=== PATIENT | female | born 1955 | race Caucasian/White ===

== ENCOUNTER 2017-06-13 21:44 | Inpatient (IN) ==
--- NOTE | 2017-06-13 22:23 | Diag Imaging Result Doc PS360 ---
EXAM: HEAD W/O CONTRAST - 06/13/2017 HISTORY: stroke like symptoms TECHNIQUE: Dose reduction protocol COMPARISON: 05/18/2014 FINDINGS: There is an old infarct at the left caudate region which appears stable. There is a small infarct at the left centrum semiovale the previous exam. There is a new infarct at the left superior frontoparietal junction compared to previous exam, which measures approximately 2 cm. This is otherwise a nonspecific age. There is a new infarct at the posterior superior insular cortex compared to previous exam. This measures approximately 2 cm and is otherwise nonspecific age. There is no other acute-appearing infarct is identified, although acute infarcts may not be immediately visible. There is no evidence of hemorrhage, mass effect, midline shift, or hydrocephalus. IMPRESSION: Old infarct at left caudate nucleus region. New small infarcts at left superior frontoparietal junction and at right posterior superior temporal lobe, compared to 05/18/2014 exam. These are otherwise of nonspecific age. Correlation with MRI could be considered. No hemorrhage or mass effect. Electronically signed by Deion Parry 06/13/2017 10:21 PM
--- NOTE | 2017-06-13 22:25 | Diag Imaging Result Doc PS360 ---
EXAM: CHEST-PORTABLE - 06/13/2017 HISTORY: stroke like symptoms TECHNIQUE: Portable chest 2200 COMPARISON: 10/23/2015 FINDINGS: Heart size appears upper normal. There is left midlung calcified granuloma and there are calcified left hilar lymph nodes from old granulosis disease which are stable. The projection is lordotic which mildly limits detail at the lung bases. The lungs appear grossly clear of acute changes. There is no substantial pleural effusion or pneumothorax identified. IMPRESSION: No evidence of acute disease. Electronically signed by Deion Parry 06/13/2017 10:23 PM
[2017-06-13 22:37] LABS: BASO% 0.2 % (0.0-0.8); EOS# 0.07 X1000 (0.0-0.7); EOS% 1.2 % (0.0-10.0); HEMATOCRIT 44.1 % (37.0-47.0); HEMOGLOBIN 14.6 g/dL (12.0-16.0); IMM GRAN# 0.02 X1000 (0.0-0.04); IMM GRAN% 0.3 % (0.0-0.5); LYMPH# 1.52 X1000 (1.2-3.4); LYMPH% 25.2 % (20.5-51.1); MANUAL DIFF NEEDED? NO; MCH 36.6 PG (27-31); MCHC 33.1 g/dL (33-37); MCV 110.5 FL (81-99); MONO# 0.57 X1000 (0.11-0.59); MONO% 9.5 % (1.7-9.3); MPV 9.2 FL (7.4-10.4); NEUT% 63.6 % (42.2-75.2); PLT 133 X1000 (130-400); RBC 3.99 XMIL (4.2-5.4)
[2017-06-13 22:45] LABS: INR 0.98; PROTIME 10.3 Seconds (9.2-11.7); PTT 27.3 Seconds (22.0-36.0)
[2017-06-13 22:45] LABS: URINE CULTURE NEEDED? NO; URINE MICRO REVIEW NEEDED? NO; URINE SOURCE CATH
[2017-06-13 22:53] LABS: BILIRUBIN URINE NEGATIVE (NEGATIVE); BLOOD URINE TRACE (NEGATIVE); COLOR YELLOW; GLUCOSE URINE NEGATIVE (NEGATIVE); LEUKOCYTES URINE NEGATIVE (NEGATIVE); NITRITE URINE NEGATIVE (NEGATIVE); PROTEIN URINE 30 mg/dL (NEGATIVE); SP GRAVITY URINE 1.028; TURBIDITY URINE CLEAR (CLEAR); UROBILINOGEN URINE NORMAL (NORMAL)
[2017-06-13 22:54] LABS: UR EPITHELIAL CELLS <10 /HPF (<10); URINE BACTERIA NEGATIVE /HPF; URINE RBC <10 /HPF (<10); URINE WBC <10 /HPF (<10)
[2017-06-13 23:02] LABS: ALBUMIN 4.3 g/dL (3.5-5.0); POTASSIUM 3.9 mmol/L (3.5-5.1); TOTAL BILIRUBIN 0.56 mg/dL (0.20-1.00); TOTAL PROTEIN 7.2 g/dL (6.3-8.3)
[2017-06-13 23:04] LABS: UR AMPHETAMINES QUAL NONE DETECTED (NONE DETECT); UR BARBITUATES QUAL NONE DETECTED (NONE DETECT); UR BENZODIAZEPIN QUAL PRESUMPTIVE POSITIVE (NONE DETECT); UR CANNABINOIDS QUAL NONE DETECTED (NONE DETECT); UR COCAINE QUAL NONE DETECTED (NONE DETECT); UR METHADONE QUAL NONE DETECTED (NONE DETECT); UR OPIATES QUAL NONE DETECTED (NONE DETECT); UR OXYCODONE QUAL PRESUMPTIVE POSITIVE (NONE DETECT); UR PCP QUAL NONE DETECTED (NONE DETECT)
[2017-06-13] MEDS ORDERED: MORPHINE IV ONE (23:10)
[2017-06-13] MEDS ORDERED: ZOFRAN IV ONE (23:10)
[2017-06-13] MEDS ORDERED: VENTOLIN HFA INH PRN (23:36)
--- NOTE | 2017-06-13 23:47 | PROVIDER DOCUMENTATION ---
This chart was entered by Sujit Jimenez Scribe, acting as scribe for Homar Gant MD. HPI-Neurological Disorder - General Stated Complaint: STROKE LIKE SYMPTOMS Time Seen by Provider: 06/13/17 21:46 Source: patient, EMS Allergies/Adverse Reactions: Patient Allergies Allergy/AdvReac Type Severity Reaction Status Date / Time promethazine HCl * AdvReac Mild NERVOUS Verified 06/13/17 23:06 [From Phenergan] Home Medications: Home Medication List Medication Instructions Recorded Confirmed Last Taken Type Gabapentin 600 mg PO TID 08/14/12 06/13/17 06/13/17 13:00 History Alprazolam [Xanax] 0.5 mg PO TID 09/07/14 06/13/17 06/13/17 13:00 History Albuterol Sulfate [Proair Hfa] 8.5 gm IH Q4-6H PRN PRN 11/12/14 06/13/17 13:00 History Ipratropium/Albuterol Sulfate 3 ml IH PRN PRN 06/04/15 06/13/17 06/13/17 13:00 History [Iprat-Albut 0.5-3(2.5) mg/3 ml] Albuterol Sulfate [Proair Hfa] 8.5 gm IH TID 06/13/17 06/13/17 06/13/17 13:00 History Cyclobenzaprine HCl [Flexeril] 5 mg PO TID 06/13/17 06/13/17 06/13/17 13:00 History Diphenhydramine [Benadryl] 100 mg PO Q4H PRN PRN 06/13/17 06/13/17 06/13/17 13: 00 History Oxycodone HCl/Acetaminophen 1 each PO TID 06/13/17 06/13/17 06/13/17 13:00 History [Percocet 7.5-325 mg Tablet] - History of Present Illness-Neuro Nature of Presenting Problem: Pt is a 61 yowf who presents to ER via EMS with CC of stroke like sxs. Pt reports that she noticed herself having slurred speech today, starting at 1100. EMS reports that pt has had 5 falls in the past 2 days and pt has hx of CVA. Pt reports that her last CVA left her with right side weakness, but reports that her sxs did eventually resolve. Pt also reports that she feels as though she is falling, she is nauseas, and has a headache. Pt reports that she cannot feel her left hand and is having left sided weakness. Severity: reports: moderate Onset/Duration: reports: this morning (1100) Timing: reports: still present Context: reports: impaired speech, facial droop, falling New weakness or altered sensation location:: reports: RUE, RLE Cognitive Baseline: alert, oriented x3 Gait Baseline: walks without assistance Associated Symptoms: reports: decreased ability to walk or stand, dizziness, nausea, numbness in legs/feet, slurred speech, trouble walking. denies: short of breath, headache, chest pain, neck/back pain, fatigue, vomiting, vision changes, weakness Similar Symptoms Previously?: Yes Recently seen or treated by another doctor?: No Review of Systems - Adult - REVIEW OF SYSTEMS - ADULT Constitutional: denies: chills, fever, fatique, night sweats, weight gain, weight loss Eyes: reports: no symptoms reported Ears, Nose, Mouth & Throat: reports: no symptoms reported Cardiovascular: reports: no symptoms reported Respiratory: reports: no symptoms reported Gastrointestinal: reports: nausea. denies: abdominal pain, hematemesis, constipation, diarrhea, difficulty swallowing, frequent heartburn, poor appetite , rectal bleeding, vomiting Genitourinary: reports: no symptoms reported Musculoskeletal: reports: muscle weakness. denies: bone pain, back pain, frequent leg cramps, joint pain, joint swelling, muscle aches, neck pain Integumentary: reports: no symptoms reported Neurological: reports: dizziness/vertigo, headache/migraines, numbness, slurred speech. denies: ataxia, loss of balance, paresthesia, seizure, syncope, tremors Psychiatric: reports: no symptoms reported Endocrine: reports: no symptoms reported Hematologic/Lymphatic: reports: no symptoms reported Allergic/Immunologic: reports: no symptoms reported All Other Systems: Reviewed and Negative Past History - Adult - PAST MEDICAL HISTORY-ADULT Review of Records: reports: Nursing Assessment Review, Medications Reviewed Cardiovascular: reports: HTN Respiratory: reports: asthma, COPD, other (emphysema) Gastrointestinal: reports: GERD Genitourinary: reports: kidney disease (stage 4), kidney stones Musculoskeletal: reports: chronic pain (leg pain) Neurological: reports: CVA Other Conditions: reports: other (nu) - PRIOR SURGERIES/PROCEDURES Surgical/Procedure History: reports: recent surgery (total knee), appendectomy, hysterectomy, , other (lithotripsy x2) - IMMUNIZATION STATUS Childhood Immunizations: See Nurse Assessment Flu Vaccine: See Nurse Assessment - SOCIAL HISTORY Smoking: cigarettes, less than 1 pack/day Physical Exam- Neurological - Physical Exam-Neuro Initial Vital Signs Reviewed: Yes General Appearance: appears well, alert, mild distress, obese Eye Exam: bilateral eye: PERRL, EOMI HENMT: other (facial asymmetry) Head Injury: no evidence of injury Neck: non-tender, full range of motion, supple Respiratory: chest non-tender, lungs clear, no pleuratic chest pain, no respiratory distress, no accessory muscle use, wheezing. negative: normal breath sounds, respiratory distress, decreased breath sounds, accessory muscle use Cardiovascular: normal peripheral pulses, regular rate, rhythm. negative: bradycardia, tachycardia, irregularly irregular Extremity: non-tender, normal inspection, no pedal edema, no calf tenderness, normal capillary refill, pelvis stable. 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 negative: normal speech Motor/Sensory: sensory deficit, weak motor strength RUE, weak motor strength RLE . negative: no motor deficit, no sensory deficit Psych/Mental Status: normal mood/affect, normal thought content, normal thought process, oriented x 3 Progress - PLAN OF CARE/RESULTS Progress/Plan/Lab Results: Vital Signs - 8 hr 06/13/17 22:16 Temperature 98.8 F Pulse Rate 89 Respiratory Rate 16 Blood Pressure 123/81 O2 Sat by Pulse Oximetry 95 Laboratory Results - last 24 hr 06/13/17 06/13/17 06/13/17 22:20 22:20 22:20 WBC 6.03 RBC 3.99 L Hgb 14.6 Hct 44.1 MCV 110.5 H MCH 36.6 H MCHC 33.1 RDW Std Deviation 12.9 Plt Count 133 MPV 9.2 Immature Gran % (Auto) 0.3 Neut % (Auto) 63.6 Lymph % (Auto) 25.2 [place] % (Auto) 9.5 H Eos % (Auto) 1.2 Baso % (Auto) 0.2 Immature Gran # (Auto) 0.02 Neut # (Auto) 3.84 Lymph # (Auto) 1.52 [place] # (Auto) 0.57 Eos # (Auto) 0.07 Baso # (Auto) 0.01 PT 10.3 INR 0.98 PTT (Actin FS) 27.3 Sodium 137 Potassium 3.9 Chloride 99 Carbon Dioxide 24 L Anion Gap 14 BUN 17 Creatinine 1.0 H Estimated GFR/1.73 m2 57 BUN/Creatinine Ratio 17 Glucose 103 Calculated Osmolality 276 Calcium 9.0 Total Bilirubin 0.56 AST 23 ALT 31 Alkaline Phosphatase 75 Troponin T Total Protein 7.2 Albumin 4.3 Globulin 2.9 Albumin/Globulin Ratio 1.5 Plasma Lactate Urine Source Urine Color Urine Turbidity Urine pH Ur Specific [place] Urine Protein Ur Glucose (Stick) Ur Ketones (Stick) Urine Blood Urine Nitrite Urine Bilirubin Urobilinogen Dipstick Urine Leukocytes Urine WBC (Auto) Urine RBC (Auto) U Epithel Cells (Auto) Urine Bacteria (Auto) Urine Opiates Screen Ur Oxycodone Screen Ur Methadone, Qual Ur Barbiturates Screen Ur Phencyclidine Scrn Ur Amphetamines Screen U Benzodiazepines Scrn Urine Cocaine Screen U Cannabinoids Screen 06/13/17 06/13/17 06/13/17 22:20 22:20 22:35 WBC RBC Hgb Hct MCV MCH MCHC RDW Std Deviation Plt Count MPV Immature Gran % (Auto) Neut % (Auto) Lymph % (Auto) [place] % (Auto) Eos % (Auto) Baso % (Auto) Immature Gran # (Auto) Neut # (Auto) Lymph # (Auto) [place] # (Auto) Eos # (Auto) Baso # (Auto) PT INR PTT (Actin FS) Sodium Potassium Chloride Carbon Dioxide Anion Gap BUN Creatinine Estimated GFR/1.73 m2 BUN/Creatinine Ratio Glucose Calculated Osmolality Calcium Total Bilirubin AST ALT Alkaline Phosphatase Troponin T < 0.010 Total Protein Albumin Globulin Albumin/Globulin Ratio Plasma Lactate 1.3 Urine Source CATH Urine Color YELLOW Urine Turbidity CLEAR Urine pH 6.0 Ur Specific [place] 1.028 Urine Protein 30 A Ur Glucose (Stick) NEGATIVE Ur Ketones (Stick) NEGATIVE Urine Blood TRACE A Urine Nitrite NEGATIVE Urine Bilirubin NEGATIVE Urobilinogen Dipstick NORMAL Urine Leukocytes NEGATIVE Urine WBC (Auto) <10 Urine RBC (Auto) <10 U Epithel Cells (Auto) <10 Urine Bacteria (Auto) NEGATIVE Urine Opiates Screen Ur Oxycodone Screen Ur Methadone, Qual Ur Barbiturates Screen Ur Phencyclidine Scrn Ur Amphetamines Screen U Benzodiazepines Scrn Urine Cocaine Screen U Cannabinoids Screen 06/13/17 22:35 WBC RBC Hgb Hct MCV MCH MCHC RDW Std Deviation Plt Count MPV Immature Gran % (Auto) Neut % (Auto) Lymph % (Auto) [place] % (Auto) Eos % (Auto) Baso % (Auto) Immature Gran # (Auto) Neut # (Auto) Lymph # (Auto) [place] # (Auto) Eos # (Auto) Baso # (Auto) PT INR PTT (Actin FS) Sodium Potassium Chloride Carbon Dioxide Anion Gap BUN Creatinine Estimated GFR/1.73 m2 BUN/Creatinine Ratio Glucose Calculated Osmolality Calcium Total Bilirubin AST ALT Alkaline Phosphatase Troponin T Total Protein Albumin Globulin Albumin/Globulin Ratio Plasma Lactate Urine Source Urine Color Urine Turbidity Urine pH Ur Specific [place] Urine Protein Ur Glucose (Stick) Ur Ketones (Stick) Urine Blood Urine Nitrite Urine Bilirubin Urobilinogen Dipstick Urine Leukocytes Urine WBC (Auto) Urine RBC (Auto) U Epithel Cells (Auto) Urine Bacteria (Auto) Urine Opiates Screen NONE DETECTED Ur Oxycodone Screen PRESUMPTIVE POSITIVE A Ur Methadone, Qual NONE DETECTED Ur Barbiturates Screen NONE DETECTED Ur Phencyclidine Scrn NONE DETECTED Ur Amphetamines Screen NONE DETECTED U Benzodiazepines Scrn PRESUMPTIVE POSITIVE A Urine Cocaine Screen NONE DETECTED U Cannabinoids Screen NONE DETECTED Orders Category Date Time Status Cardiac Monitoring DIRECTED Care 06/13/17 22:17 Active Finger Stick Blood Sugar (ED) DIRECTED Care 06/13/17 22:17 Active Saline Loc NOW Care 06/13/17 22:17 Active CHEST-PORTABLE [RAD] Stat Exams 06/13/17 21:45 Completed HEAD W/O CONTRAST [CT] Stat Exams 06/13/17 21:45 Completed CBC WITH ELECTRONIC DIFF [HEME] Stat Lab 06/13/17 22:20 Completed COMPREHENSIVE METABOLIC PANEL [CHEM] Stat Lab 06/13/17 22:20 Completed LACTATE, PLASMA [CHEM] Stat Lab 06/13/17 22:20 Completed PROTIME WITH INR [COAG] Stat Lab 06/13/17 22:20 Completed PTT [COAG] Stat Lab 06/13/17 22:20 Completed TROPONIN T Stat Lab 06/13/17 22:20 Completed URINALYSIS W/POSS RFLX CULT-1 [URINALYSIS] Stat Lab 06/13/17 22:35 Completed URINE DRUG SCREEN Stat Lab 06/13/17 22:35 Completed Albuterol 2.5MG/Ipratrop 0.5MG [Duoneb (A & A)] Med 06/13/17 23:36 Active 3 ml INH PRN PRN Albuterol Sulfate Inhaler [Ventolin Hfa] Med 06/13/17 23:36 Active 1 puff INH Q4-6H PRN PRN Albuterol Sulfate Inhaler [Ventolin Hfa] Med 06/14/17 09:00 Active 1 puff INH RTTID Morphine Med 06/13/17 23:10 Discontinued 4 mg IV NOW ONE Ondansetron [Zofran] Med 06/13/17 23:10 Discontinued 4 mg IV NOW ONE EKG [EKG] Stat Ther 06/13/17 21:45 Ordered Result Diagrams: 06/13/17 22:20 06/13/17 22:20 - EKG 1 Time of EKG reading by physician:: 22:15 EKG Read and Signed by:: Homar Gant EKG Interpretation (*Must complete 3 of following elements*): Abnormal ( Nonspecific T wave abnormality) Rate: 89 Rhythm: NSR - CT/MRI 1 CT Study: Head Impression: See EMR Report (2 potential subacute area os infarct within the right external capsule, and left frontal lobe.- Dr. Garcia (Radiologist)) CT Results: See report - CONSULTS/PCP/HOSPITALIST Notification #1 *Consult/PCP/Hospitalist*: Dr. Hall (Hospitalist) Time Discussed: 23:20 Consult Disposition: Admit Departure - Departure Date of Disposition Decision: 06/13/17 Time of Disposition Decision: 23:46 DIAGNOSIS: CVA (cerebral vascular accident) Qualifiers: CVA mechanism: unspecified Qualified Code(s): I63.9 - Cerebral infarction, unspecified Disposition: ADMITTED INPATIENT 09 Certified Medical Emergency: Emergent Condition: Fair - Critical Care Note This patient required my direct & personal management of CC.: No Attestation - Physician/ ABDOUL Attestation Patient care was provided by Advanced Practice Provider:: No The physician spent face to face time with patient:: Yes Advanced Practice Provider documentation review:: Supervising physician onsite and consulted in the evaluation and care of this patient. The physician did have a face to face encounter with the patient. This chart was documented by the indicated scribe, (Sujit Jimenez Scribe) and accurately reflects the services I performed and decisions made by me, Homar Garcia MD, as attested by the provider's signature.
[2017-06-14] MEDS: DUONEB (A & A) INH PRN ×5 (00:10→20:01)
[2017-06-14] MEDS ORDERED: ASPIRIN PR ONE (01:19)
[2017-06-14] MEDS ORDERED: SODIUM CHLORIDE 0.9% INJ SCH (02:27)
--- NOTE | 2017-06-14 02:56 | HISTORY AND PHYSICAL ---
PRIMARY CARE PROVIDER: SAILAJA Hightower. CHIEF COMPLAINT: Slurring speech and fell 5 times over 3 days. HISTORY OF PRESENT ILLNESS: Ms Bermeo is a 61-year-old female with a past medical history including previous left caudate, hypertension, morbid obesity, GERD, COPD with continued tobacco abuse, who presents to the emergency room after having multiple falls over the past 3 days and slurring in her speech. A CT scan of her head was obtained when she arrived in the emergency room which showed 2 subacute areas of infarct within the right external capsule in the left frontal lobe. The patient previously had mild right-sided deficits from her old CVA. She has more substantial left-sided deficits on arrival including right facial droop and flaccid upper and lower extremity on the right side as well as slurring of her speech. Laboratory data was grossly normal. Toxicology screen did show oxycodone and benzodiazepines which were prescribed medications for the patient. She will be admitted inpatient for further evaluation and treatment. PAST MEDICAL HISTORY: 1. COPD with continued tobacco use. 2. Hypertension. 3. Neuropathy. 4. GERD. 5. Morbid obesity. 6. Nephrolithiasis. 7. Previous left caudate infarct. 8. Chronic renal insufficiency. PREVIOUS SURGICAL HISTORY: 1. Left total knee replacement. 2. Appendectomy. 3. Hysterectomy. 4. . 5. Extracorporeal shockwave lithotripsy x2. 6. Cystoscopy with basket extraction of stone. 7. Right laser lithotripsy and stent placement. SOCIAL HISTORY: , lives with her . Denies illicit drugs. A pack-a-day smoker for the past 46 years. Smoking cessation was gone over with the patient. She denies wanting to stop at this time. The patient denies illicit drug use. Currently unemployed. FAMILY HISTORY: Positive for hyperlipidemia, hypertension, kidney disease in her brother and sister. ALLERGIES: Phenergan causing nervousness. HOME MEDICATIONS: 1. Neurontin 600 mg p.o. t.i.d. 2. Xanax 0.5 mg p.o. t.i.d. 3. Albuterol sulfate inhalation q.4-6 p.r.n. 4. DuoNeb 3 mL inhalation p.r.n. 5. Benadryl 100 mg p.o. q.4 hours p.r.n. 6. Percocet 7.5 one p.o. t.i.d. 7. Flexeril 5 mg p.o. t.i.d. REVIEW OF SYSTEMS: Fourteen point review of systems conducted with the patient. Was technically difficult as her speech was very slurred. The patient was positive for decreased ability to stand or ambulate, dizziness, nausea. Denied vomiting. Positive for slurring speech. Positive for falls. Negative for headache. Negative for chest pain, fatigue, visual changes, weakness, shortness of breath. Other pertinent positives are listed above in the HPI. All other systems were reviewed and found to be negative. PHYSICAL EXAMINATION: VITAL SIGNS: Temperature 98.8 degrees, pulse 90, respirations 16, blood pressure 123/81, oxygen saturation 95% on room air. GENERAL: Morbidly obese 61-year-old female lying in the ER stretcher. Her speech is slurred. Answers all questions appropriately. Is alert and oriented x3, in no acute distress. HEENT: Head is atraumatic, normocephalic. Pupils equal, round, reactive to light. Extraocular eye movement intact. Six [place] of gaze are intact. Left-sided facial droop is noted. Oral mucosa is moist. Sclerae is anicteric. Conjunctivae is pink. NECK: Short and thick. No JVD. Trachea is midline. No carotid bruit. CARDIOVASCULAR: S1-S2 appreciated. Regular rhythm. No murmurs, gallops, rubs. LUNGS: Bilateral expiratory wheezing. No rhonchi or rales. Symmetrical rise and fall with respirations. Mildly prolonged expiratory phase. ABDOMEN: Obese, soft, nondistended, nontender. Bowel sounds present in all 4 quadrants. Normoactive. No pulsatile mass. No organomegaly. EXTREMITIES: No clubbing, cyanosis, or edema. 2+ pedal pulses. MUSCULOSKELETAL: Left upper and lower extremity are flaccid. Trace movement in the left hand. Right upper extremity 4/5 strength. Left lower extremity 5/5 strength. NEUROLOGICAL: Awake, alert, oriented x3. Left-sided facial droop noted. Left-sided hemiparesis noted. SKIN: Warm, dry and intact. No acute lesions or rash. GENITOURINARY: Patient voids, otherwise deferred. DIAGNOSTIC DATA: Chest x-ray, chronic COPD changes. CT of the head, old infarct of the left caudate nucleus region, new small infarcts at the left superior frontoparietal junction and at the right posterior superior temporal lobe. LABORATORY DATA: WBC 6.03, hemoglobin 14.6, hematocrit 44.1, platelet count 133,000. Coags within normal limits. Sodium 137, potassium 3.9, chloride 99, BUN 17, creatinine 1, glucose 103. Urine unremarkable. Toxicology screen positive for oxycodone and benzodiazepines. ASSESSMENT AND PLAN: 1. New right-sided cerebrovascular accident with left-sided deficits. Appears to be subacute. We will consult Physical Therapy and social worker palliative care for possible rehab needs. We will give aspirin 300 mg daily per rectum until swallowing study is complete. Aspirin 300 mg per rectum was given in the emergency room. We will start Lipitor 40 mg p.o. at bedtime when the patient is able to take p.o. Check a lipid profile. Aspiration precautions. Neuro checks q.2 hours. 2. Chronic obstructive pulmonary disease with continued tobacco use. Smoking cessation was gone over with the patient. She did not want to quit at this time. We will continue DuoNebs. We will start a 21 mg NicoDerm patch daily. 3. Hypertension. Patient is normotensive at this time. She would not be treated aggressively at any rate related to her new CVA and the need for hyperperfusion. 4. Chronic renal insufficiency, aware. We will give normal saline at 80 mL an hour while patient is not taking p.o. 5. Gastroesophageal reflux disease. We will give Protonix 40 mg IV daily. 6. Chronic benzodiazepine and opioid use. We will hold at this time while neuro checks continue. We will restart when appropriate. 7. Morbid obesity, aware. Further recommendations per patient clinical course. Dictated by SAILAJA Barker for Yana Hall MD cc: SAILAJA Barker MD Jennifer Beatty, CRNP
[2017-06-14] MEDS: NS 1,000 ML IV SCH ×2 (03:08→14:20)
[2017-06-14] MEDS: PROTONIX IV SCH (03:08)
[2017-06-14] MEDS ORDERED: ASPIRIN PR SCH (09:00)
[2017-06-14] MEDS ORDERED: VENTOLIN HFA INH SCH (09:00)
[2017-06-14] MEDS: HEPARIN SUBQ SCH ×2 (09:18→20:32)
[2017-06-14] MEDS: NICODERM PATCH TD SCH (09:18)
[2017-06-14] MEDS ORDERED: PERCOCET-5 PO SCH (13:00)
[2017-06-14] MEDS: PERCOCET-5 PO PRN ×2 (18:42→21:46)
--- NOTE | 2017-06-14 19:43 | PROGRESS NOTE ---
DATE: 06/14/2017 HISTORY OF PRESENT ILLNESS: Ms. Bermeo is a 61-year-old who was admitted yesterday. She came in with slurred speech, and fell 5 times over the last 3 days. She sees Reema MENARD. She is a 61-year-old with a past medical history of previous left caudate CVA, I believe, hypertension, morbid obesity, gastroesophageal reflux disease, COPD, continued tobacco use. Presented to the emergency room after having multiple falls in the last 3 days, slurred speech. CT scan of her head was obtained on arrival to the emergency room, and showed 2 subacute areas of infarction, the right internal capsule and the left frontal lobe. The patient previously had mild right-sided deficits from her CVA. She has more substantial left-sided deficits on arrival, including right facial droop, flaccid upper and lower extremities on the right side, and slurring of speech. This morning, she was asking for something for pain. Speech seemed to be good, but she is more concerned about her pain everywhere, but predominantly in her back. PAST MEDICAL HISTORY: Reviewed again. 1. COPD, continued tobacco use. 2. Hypertension. 3. Neuropathy. 4. Gastroesophageal reflux disease. 5. Morbid obesity. 6. Nephrolithiasis. 7. Previous left caudate infarct. 8. Chronic renal insufficiency. PAST SURGICAL HISTORY: 1. Left total knee replacement. 2. Appendectomy. 3. Hysterectomy. 4. . 5. Extracorporeal shockwave lithotripsy x2. 6. Cystoscopy and extraction of stone. 7. Right laser lithotripsy and stent placement in the past. PHYSICAL EXAMINATION: Vital Signs: Today, temperature 98.3 degrees, pulse 100, respirations 20, blood pressure 144/97. Lungs: Clear in all lung [place]. Cardiovascular: Regular rate, without murmur or S3. Abdomen: Soft. Skin: Warm and dry. Good urine output by report. LABORATORY STUDIES: Reviewed from yesterday. ASSESSMENT AND PLAN: 1. Right-sided cerebrovascular accident with left-sided deficits. Appeared to be subacute. Will get Physical Therapy and Speech Therapy involved. I gave her aspirin 300 mg daily. We will check a swallow study. She is on Lipitor 40 mg at bedtime. She does have a history of hypercholesterolemia. I believe a statin would be beneficial. 2. Chronic obstructive pulmonary disease. Respiratory status seems good. Good air and gas exchange. 3. Hypertension. I will watch her blood pressure. Allow for systolic pressures of 140-160 would be optimal. 4. Chronic renal insufficiency. Creatinine appears to be at baseline. She is getting normal saline at 80 mL an hour. Creatinine is 1.0. 5. She has a history of gastroesophageal reflux, chronic pain syndrome, chronic benzodiazepine and opiate use. Reviewed her orders. At the present time, she does take Percocet apparently at home, so I guess we will put her back on her Percocet. cc: Keshawn Oneill MD
[2017-06-14] MEDS: LIPITOR PO SCH (20:33)
[2017-06-14] MEDS: ZOFRAN IV PRN (20:49)
[2017-06-15] MEDS: ZOFRAN IV PRN ×3 (01:24→21:04)
[2017-06-15] MEDS: PROTONIX IV SCH (01:27)
[2017-06-15] MEDS: PERCOCET-5 PO PRN ×3 (04:30→18:45)
[2017-06-15] MEDS: NS 1,000 ML IV SCH ×2 (04:32→16:35)
[2017-06-15 06:47] LABS: AGAP 15; BUN 11 mg/dL (8-22); CALCIUM 8.5 mg/dL (8.8-10.2); CHLORIDE 101 mmol/L (98-107); COSMO 277; POTASSIUM 4.1 mmol/L (3.5-5.1); SODIUM 139 mmol/L (136-145); TCO2 23 mmol/L (25-35)
--- NOTE | 2017-06-15 07:16 | EKG Report ---
Test Performed on : 06/13/2017 10:15:08 PM Test Reason : stroke like symptoms Blood Pressure : / mmHG Vent. Rate : 089 BPM Atrial Rate : 089 BPM P-R Int : 140 ms QRS Dur : 090 ms QT Int : 406 ms P-R-T Axes : 035 035 082 degrees QTc Int : 493 ms Normal sinus rhythm. Nonspecific T wave abnormality Abnormal ECG When compared with ECG of 23-OCT-2015 14:30, aberrant conduction. is no longer present T wave inversion now evident in Anterior leads Unconfirmed Result
[2017-06-15] MEDS: NICODERM PATCH TD SCH (08:11)
[2017-06-15] MEDS: HEPARIN SUBQ SCH ×3 (08:11→23:18)
[2017-06-15] MEDS: ASPIRIN EC PO SCH (08:34)
[2017-06-15] MEDS: DUONEB (A & A) INH PRN ×4 (09:21→22:27)
--- NOTE | 2017-06-15 10:04 | PROGRESS NOTE ---
DATE: 06/15/2017 SUBJECTIVE: Ms. Bermeo is awake and alert. She wants her Xanax back. She also wanted her muscle relaxer. She swallowed fine, passed the swallow study at bedside. We advanced her diet to a soft diet. I did not find any new neurologic deficits. I do not see any sign of facial asymmetry. PHYSICAL EXAMINATION: Vital Signs: She remains afebrile, pulse 100, respirations 18, blood pressures have been 135-179/71-107. Lungs: Clear in all lung [place]. Cardiovascular Examination: Regular rhythm and rate without murmur or S3. Abdomen: Soft. Skin: Warm and dry. Is and Os: Urine output 1875 mL. LABORATORY DATA: Reviewed lab from the , unremarkable. Electrolytes look good. Her electrolytes from this morning, sodium 139, potassium 4.1, chloride 101, BUN 11, creatinine 0.7. ASSESSMENT AND PLAN: 1. Right-sided cerebrovascular accident with left-sided deficit which seems to have resolved. Good swallow, good speech. She is on aspirin 300 mg a day. I will advance her diet. She is also on Lipitor 40 mg a day. She does have a history of hypercholesterolemia. 2. Chronic obstructive pulmonary disease. Air and gas exchange were good. 3. Hypertension. 4. Chronic renal insufficiency. Renal function appears stable. Last creatinine was 0.7. 5. She has chronic pain syndrome. Put her back on her Percocet. 6. She is requesting her Xanax. 7. We have speech and physical therapy going on. We have her on a nicotine patch, aspirin 325 mg, Lipitor 40 mg a day. Since she can swallow, we switched her to the 325 oral. She was on 300 mg per rectum. We will try and put her back on her Xanax. I did restart her Percocet. She takes 7.5 mg three times a day as needed. Her Xanax which she takes at home is 0.5 mg three times a day. I will go ahead and start her back on that. I am going to hold the Flexeril for now and the gabapentin. She also was on Effexor which I think was 50 mg twice a day. We will see if we can get her back on that. cc: Keshawn Oneill MD
[2017-06-15] MEDS: XANAX PO SCH ×3 (12:08→23:18)
[2017-06-15] MEDS: EFFEXOR PO SCH ×2 (19:33→23:18)
[2017-06-15] MEDS: LIPITOR PO SCH ×2 (19:35→23:18)
[2017-06-16] MEDS: PERCOCET-5 PO PRN ×3 (00:26→15:51)
[2017-06-16] MEDS: NS 1,000 ML IV SCH ×2 (03:46→18:06)
[2017-06-16] MEDS: DUONEB (A & A) INH PRN ×6 (03:53→22:48)
[2017-06-16] MEDS: PROTONIX IV SCH (05:38)
[2017-06-16] MEDS: EFFEXOR PO SCH ×2 (08:16→20:56)
[2017-06-16] MEDS: XANAX PO SCH ×3 (08:16→18:43)
[2017-06-16] MEDS: HEPARIN SUBQ SCH ×2 (08:16→21:00)
[2017-06-16] MEDS: ASPIRIN EC PO SCH (08:16)
[2017-06-16] MEDS: NICODERM PATCH TD SCH (08:16)
[2017-06-16] MEDS ORDERED: MYLICON PO PRN (13:28)
--- NOTE | 2017-06-16 13:49 | PROGRESS NOTE ---
DATE: 06/16/2017 SUBJECTIVE: This patient is alert and oriented x3,. She does not have dysphagia but she does have left side weakness, upper extremities about 3 to 4/5 and lower extremities about 4 out of 5. I see some kind of facial asymmetry when she talks. CT scan of the head showed some new small infarct at left superior frontoparietal junction and at right posterior superior temporal lobe compared to 05/18/2014 exam. I will order an MRI to be more specific with these lesions. OBJECTIVE: Vital Signs: Temperature 98.6 degrees, pulse 109, respiratory rate 20, blood pressure 164/110, O2 saturation 100% on 3 L of nasal cannula. HEENT: Head normocephalic. No trauma. PERRLA. Some left facial droop. Neck: Supple no JVD. No masses. Central trachea. Chest: Clear to auscultation. No wheezing. No rales. Cardiovascular: RRR. Extremities: No edema. No clubbing. No cyanosis. Neurological: The patient is alert and oriented x3. Mild to moderate left upper extremity weakness and mild left lower extremity weakness. LABORATORY: No lab work done today. ASSESSMENT AND PLAN: 1. Right side CVA with left-sided weakness. Continue with the same management. I will ask for an MRI and probably I will ask also for Neurology consult for more recommendations. 2. COPD not in exacerbation at this moment. 3. Hypertension. Her blood pressure is elevated. I will start this patient on hydralazine p.o. 4. Acute kidney injury. Resolved. 5. Chronic pain syndrome. Continue with Percocet. 6. Anxiety. This patient was placed back on Xanax. 7. Left-sided weakness. Physical therapy on board. cc: Tung Anguiano MD
--- NOTE | 2017-06-16 14:42 | Diag Imaging Result Doc PS360 ---
EXAM: MRI BRAIN W/O CONTRAST INDICATION: R/O stroke COMPARISON: CT head dated 06/13/2017. No prior MRI brain is available for comparison. FINDINGS: Note that this study was originally ordered as an MRI with and without contrast. However, the patient refused to complete the study and post contrast images were not obtained. All of the standard precontrast sequences were performed. There is an acute infarct involving the right parietal lobe centrum semiovale extending to the insula that was also seen on the previous CT. No other acute infarct is appreciated. There is patchy T2/FLAIR hyperintensity in the periventricular and subcortical white matter suggesting moderate microangiopathy. There appears to be focal encephalomalacia involving the superior left frontal lobe near the cranial vault. There are several scattered chronic lacunar infarcts in the periventricular white matter. There is no discrete intracranial mass, mass effect, or intracranial hemorrhage. The surrounding soft tissues and bony structures are essentially unremarkable. IMPRESSION: 1.Acute infarct involving the centrum semiovale and the right parietal lobe extending to the insular cortex on the right that was also seen on a recent CT. 2.White matter microvascular changes as well as several chronic lacunar infarcts and mild left frontal lobe focal encephalomalacia. Electronically signed by Marlo Vasquez 06/16/2017 2:40 PM
[2017-06-16] MEDS: LIPITOR PO SCH (20:56)
[2017-06-16] MEDS: APRESOLINE PO SCH (20:56)
[2017-06-16] MEDS: ZOFRAN IV PRN (20:59)
[2017-06-17] MEDS: PERCOCET-5 PO PRN ×4 (00:08→22:36)
[2017-06-17] MEDS: PROTONIX IV SCH (04:48)
[2017-06-17] MEDS: APRESOLINE PO SCH ×4 (04:49→21:18)
[2017-06-17] MEDS: NS 1,000 ML IV SCH ×3 (05:26→17:08)
[2017-06-17] MEDS: NICODERM PATCH TD SCH ×2 (07:58→10:33)
[2017-06-17] MEDS: EFFEXOR PO SCH ×2 (07:59→21:15)
[2017-06-17] MEDS: XANAX PO SCH ×3 (07:59→21:13)
[2017-06-17] MEDS: HEPARIN SUBQ SCH ×2 (08:01→21:17)
[2017-06-17] MEDS: ASPIRIN EC PO SCH (08:01)
[2017-06-17] MEDS: DUONEB (A & A) INH PRN ×3 (08:12→23:00)
[2017-06-17 10:04] LABS: BASO% 0.2 % (0.0-0.8); EOS# 0.04 X1000 (0.0-0.7); EOS% 0.8 % (0.0-10.0); HEMOGLOBIN 13.7 g/dL (12.0-16.0); IMM GRAN# 0.03 X1000 (0.0-0.04); IMM GRAN% 0.6 % (0.0-0.5); LYMPH# 1.19 X1000 (1.2-3.4); LYMPH% 22.6 % (20.5-51.1); MANUAL DIFF NEEDED? YES; MCH 36.6 PG (27-31); MCHC 33.4 g/dL (33-37); MCV 109.6 FL (81-99); MONO# 0.51 X1000 (0.11-0.59); MONO% 9.7 % (1.7-9.3); MPV 9.3 FL (7.4-10.4); NEUT% 66.1 % (42.2-75.2); PLT 122 X1000 (130-400); RBC 3.74 XMIL (4.2-5.4)
[2017-06-17 10:26] LABS: AGAP 15; BUN 10 mg/dL (8-22); CALCIUM 8.7 mg/dL (8.8-10.2); CHLORIDE 100 mmol/L (98-107); COSMO 278; POTASSIUM 3.5 mmol/L (3.5-5.1); SODIUM 140 mmol/L (136-145); TCO2 25 mmol/L (25-35)
[2017-06-17 10:36] LABS: LYMPHS 34 % (21-51); MONO 6 % (1-9)
[2017-06-17] MEDS: PRINIVIL PO SCH (11:25)
--- NOTE | 2017-06-17 11:57 | PROGRESS NOTE ---
DATE: 06/17/2017 SUBJECTIVE: This patient is alert and oriented x3. She does not have dysphagia but she does have left-sided weakness. Also I can see some facial asymmetry mostly when she talks. We had an MRI done yesterday that showed acute infarct involving the centrum semiovale and the right parietal lobe extending to the insular cortex on the right. White matter microvascular changes as well as several lacunar infarcts and mild left frontal lobe encephalomalacia. OBJECTIVE: Vital Signs: Temperature 98.6 degrees, pulse 100, respiratory rate 22, blood pressure 150/113, O2 saturation 99 on 3 L of nasal cannula. HEENT: Head normocephalic. No trauma. PERRLA. Neck: Supple. No JVD. No masses. Central trachea. Some left facial droop. Chest: Clear to auscultation. No wheezing. No rales. Cardiovascular: RRR. Extremities: No edema. No clubbing. No cyanosis. Neurological: The patient is alert and oriented x3. Mild to moderate left upper extremity weakness and mild left lower extremity weakness. LABORATORY: WBC 5.2, hemoglobin 13.7 hematocrit 41, platelets 122,000. Sodium 140, potassium 3.5, chloride 100, bicarbonate 25, BUN 10, creatinine 0.7, glucose 97, calcium 8.7. ASSESSMENT AND PLAN: 1. Right side CVA with left side weakness. Left-sided weakness. Continue with the same management. MRI of the brain showed the acute stroke on the right side. We have consulted Neurology Department for more recommendations. 2. COPD not in exacerbation. 3. Hypertension. Her blood pressure has been elevated. I started this patient on hydralazine yesterday and today I started this patient on lisinopril. We will continue to monitor. 4. Acute kidney injury. Resolved. 5. Chronic pain syndrome. Continue with Percocet. 6. Anxiety. This patient has been placed already on Xanax. 7. Left-sided weakness. Physical therapy on board. 8. Disposition. Once Neurology evaluates the patient, I think she is ready to be discharged to a rehab center. cc: Tung Anguiano MD
[2017-06-17] MEDS: FLEXERIL PO SCH ×3 (12:46→21:14)
--- NOTE | 2017-06-17 14:20 | ECHO REPORT ---
ORDER DATE: 06/16/2017 INDICATION: Stroke, morbid obesity, COPD, hypertension. FINDINGS: This is a somewhat difficult study with poor endocardial border resolution. Evalve echocontrast was used to delineate the endocardial borders. 1. Right atrium appears normal in size at 3.5 cm. 2. Mild tricuspid regurgitation. RV systolic pressure of 33. 3. Normal RV size and systolic function. 4. No significant pulmonic insufficiency. 5. Normal left atrial size at 3.4 cm. 6. No mitral prolapse. Mild mitral regurgitation. 7. Normal LV size, end-diastolic dimension of 5.5. Mild left ventricular hypertrophy with a posterior and interventricular septal thickness of 1.3 cm each. Normal LV systolic function. Calculated EF of 64% with normal wall motion. 8. Aortic valve opens well. No evidence of stenosis or insufficiency. 9. Aorta appears normal in visualized segments. 10. No pericardial effusion seen. cc: MD Tung De La Torre MD
[2017-06-17 14:37] LABS: HEMOGLOBIN A1C 4.8 % (4.8-6.0)
--- NOTE | 2017-06-17 15:54 | CONSULTATION ---
DATE OF CONSULTATION: 06/17/2017 REASON FOR CONSULTATION: The patient is seen in consultation at the request of Dr. Heller for evaluation of stroke. HISTORY OF PRESENT ILLNESS: A 61-year-old, right-handed, female with morbid obesity, tobacco use, hypertension, hyperlipidemia, who was admitted over the weekend and found to have had an acute stroke. She presented complaining of 3 days worth of repeated falls and slurred speech. She was noted to have slurred speech, left facial droop, flaccid upper arm and weak lower leg on the left. She has had workup for this including MRI showing acute infarct of the centrum semiovale and parietal lobe that extended into the insular cortex, all on the right. There was note of some left frontal encephalomalacia, possibly from remote stroke as well as several chronic lacunar infarcts and microvascular changes. She has been started on Lipitor 40 as well as a full- dose aspirin. Her blood pressure is being monitored. She says she had an echocardiogram this morning. The results are pending. She reports that her symptoms have been improving since the onset. She was not taking any aspirin or anticoagulation at home. PAST MEDICAL HISTORY: Hypertension, prior stroke noted on MRI. Mild right arm weakness from prior stroke. COPD, continued cigarette smoking, neuropathy, GERD, morbid obesity, nephrolithiasis, chronic renal insufficiency, left knee replacement, appendectomy, hysterectomy, C- section, extracorporeal shock wave lithotripsy x2, cystoscopy with basket extraction of stone, right laser lithotripsy, and stent placement. SOCIAL HISTORY: She is and lives with her . No alcohol or drug abuse. She smokes currently and did not seem interested in stopping. I did encourage smoking cessation. FAMILY HISTORY: Notable for hyperlipidemia and hypertension. ALLERGIES: To Phenergan. MEDICATIONS: Current medications were reviewed in the chart. Notable for aspirin 325 mg daily. Lipitor 40 mg daily. Lisinopril, hydralazine. REVIEW OF SYSTEMS: Balance of 12 was conducted and is otherwise negative, except that detailed in the HPI. PHYSICAL EXAMINATION: Vital Signs: Blood pressure 129-150/88-113. Pulse 101. Afebrile, respirations 26. General Exam: This is a morbidly obese, female, supine in bed. No acute distress. Cooperative. HEENT: Normal. Neck: Supple. Trachea is midline. Cardiovascular: Intact distal pulses. No major edema noted. Lungs: No increased work of breathing. Normal chest rise and expansion. No audible rales or wheezes. Abdomen: Soft, nontender. Morbidly obese. Extremities: Warm well perfused. No major edema. Skin: Warm, dry, and intact. MS: Awake, alert, oriented. Speech is fluent. Attention and concentration are intact. Appropriately conversant. Cranial nerves: PERRL, conjugate gaze. Ocular movements full. Visual [place] intact to direct confrontational testing. Face symmetric with equal activation. Facial sensation is intact. Tongue is midline. Difficult to see the uvula. Palate and uvula elevate. Motor exam: No drift on the right. Unable to hold her left upper extremity up for this testing. She has pretty good strength on the right arm and leg. Maybe some mild weakness on the right arm. There is some pain with some bruising at the time of testing on the left. She has a hemiparesis, worse on the left arm as compared to the left leg , which has pretty good strength at this time. The left hand is most prominent. No incoordination noted. Sensory is grossly intact. DIAGNOSTICS: MRI of the brain was personally reviewed. It shows an acute infarct on the right side in the centrum semiovale and right parietal lobe, as well as insular cortex. Again, there is also microvascular ischemic changes in the white matter. Several chronic lacunar infarcts and left frontal lobe focal encephalomalacia that may have been a remote infarct. LAB WORK: Was reviewed in the chart. INR of 0.9. Her BUN is 10, creatinine 0.7. LFTs are not elevated. Her triglycerides are 442, cholesterol 209, LDL 63, HDL 34. Toxicology was positive for oxycodone and benzodiazepines. ASSESSMENT AND PLAN: A 61-year-old, right-handed, female with hypertension, tobacco use, morbid obesity and hyperlipidemia, who presents with an acute stroke within the right hemisphere. At this time, she has remaining corresponding left hemiparesis that has improved since her admission. Agree with the workup that has been done thus far. I agree with Lipitor as you are doing. I discussed that she needs to be on a low-dose aspirin every day and that she should take this with food. She seemed to have some resistance to this, but I explained the importance of this. Adequate blood pressure control is also essential here. It should be at least less than 140/90. I ordered an A1c. I also ordered carotid Dopplers. TTE is pending. Smoking cessation was extensively discussed with the patient today. She does not seem interested in this, but the importance was discussed. Physical therapy, occupational therapy, speech therapy. Thank you for this consultation. cc: Lucero Jung MD MTDD
[2017-06-17] MEDS: LIPITOR PO SCH (21:13)
[2017-06-18] MEDS: DUONEB (A & A) INH PRN ×2 (03:00→11:02)
[2017-06-18] MEDS: PROTONIX IV SCH (04:53)
[2017-06-18] MEDS: APRESOLINE PO SCH ×3 (04:54→15:05)
[2017-06-18 06:34] LABS: BASO% 0.2 % (0.0-0.8); EOS# 0.05 X1000 (0.0-0.7); EOS% 1.1 % (0.0-10.0); HEMATOCRIT 40.4 % (37.0-47.0); HEMOGLOBIN 13.4 g/dL (12.0-16.0); LYMPH# 1.12 X1000 (1.2-3.4); LYMPH% 25.3 % (20.5-51.1); MANUAL DIFF NEEDED? NO; MCH 36.6 PG (27-31); MCHC 33.2 g/dL (33-37); MCV 110.4 FL (81-99); MONO# 0.46 X1000 (0.11-0.59); MONO% 10.4 % (1.7-9.3); MPV 9.6 FL (7.4-10.4); PLT 120 X1000 (130-400); RBC 3.66 XMIL (4.2-5.4)
[2017-06-18 06:55] LABS: AGAP 13; BUN 11 mg/dL (8-22); CALCIUM 8.5 mg/dL (8.8-10.2); CHLORIDE 102 mmol/L (98-107); COSMO 284; POTASSIUM 3.6 mmol/L (3.5-5.1); SODIUM 143 mmol/L (136-145); TCO2 28 mmol/L (25-35)
[2017-06-18] MEDS: PERCOCET-5 PO PRN ×2 (07:56→15:03)
[2017-06-18] MEDS: NICODERM PATCH TD SCH ×2 (07:56→11:26)
[2017-06-18] MEDS: XANAX PO SCH ×3 (07:56→15:04)
[2017-06-18] MEDS: HEPARIN SUBQ SCH ×2 (07:57→11:27)
[2017-06-18] MEDS: PRINIVIL PO SCH ×2 (07:57→11:26)
[2017-06-18] MEDS: ASPIRIN EC PO SCH ×2 (07:57→11:26)
[2017-06-18] MEDS: FLEXERIL PO SCH ×2 (07:57→13:12)
[2017-06-18] MEDS: EFFEXOR PO SCH (08:12)
[2017-06-18 11:56] VITALS: BP 147/103
--- NOTE | 2017-06-18 11:56 | DISCHARGE SUMMARY ---
ADMISSION DATE: 06/14/2017 DISCHARGE DATE: CONSULTATIONS: Lucero Jung MD with Neurology. PERTINENT PROCEDURES: 1. Head CT showed old infarct in the left lacune nucleus region. Small infarct of the left superior frontoparietal junction at the right posterior superior temporal lobe. Compared to 05/18/2014 correlation with MRI could be considered. No hemorrhage on mass effect. 2. Chest x-ray showed no evidence of acute disease. 3. Brain MRI showed acute infarct involving the centrum semi-ovale in the right parietal lobe extending into the insular cortex on the right. It was also seen on recent CT, white matter microvascular changes, as well as several chronic lacunar infarcts and mild left frontal lobe focal encephalomalacia. 4. Echocardiogram showed an ejection fraction of 64% with normal wall motion. DISCHARGE DIAGNOSES: 1. Acute stroke within the right hemisphere with left hemiparesis, has improved. She is being discharged to rehab. Will continue on aspirin, Lipitor, and blood pressure medication. 2. Chronic obstructive pulmonary disease, not in exacerbation. 3. Hypertension. Continue home medications. 4. Acute kidney injury. 5. Chronic pain syndrome. Continue with Percocet. 6. Anxiety. Continue Xanax. 7. Tobacco abuse. Smoking cessation was discussed. 8. Morbid obesity. Diet and exercise was also discussed and educated. HOSPITAL COURSE: Ms. Bermeo is a 61-year-old female with a past medical history of previous stroke, hypertension, morbid obesity, GERD, COPD, continued tobacco abuse, who presented to the ED after having multiple falls over the past three days, slurring in her speech. CT of the head was obtained in the ED which showed 2 subacute areas of infarct within the right external capsule and the left frontal lobe. The patient previously had a mild right-sided deficits from her old CVA. She had more substantial left-sided deficits on arrival, including right facial droop and flaccid upper and lower extremities on the right side, as well as slurring of her speech. Laboratory data was grossly normal. Toxicology screen showed oxycodone and benzo's, which were prescribed medications. She was admitted for an acute right-sided cerebrovascular accident with left-sided deficits. With physical therapy and social service consult, as well as neurology, started on aspirin as well as statin. Neuro checks, lipid profile check, aspiration precaution, brain MRI confirmed the CT findings. Smoking cessation was discussed, as well as diet and exercise, as well as the patient going to rehab, working with physical therapy, occupational, and speech therapy. She has also been educated on the importance of adequate blood pressure control. Neurology recommended at least 140/90. Managed Care Nurse has the patient a bed at [facility]. She is appropriate for discharge today. VITAL SIGNS: Temperature is 98.7 degrees, heart rate 106, respirations 22, blood pressure 139/94, O2 is 97% on room air. DISCHARGE DIET: GI soft. DISCHARGE MEDICATIONS: As per Dr. Heller. Please see JAN. FOLLOWUP: Ms. Bermeo is being discharged to [facility], where she will work with physical therapy, OT, and speech therapy. Again, she has been explained the importance of blood pressure control 140/90, dietary changes, smoking cessation, as well as the means to quit. She can followup with her primary care physician, SAILAJA Hightower in 1 week. She can return to the ED for any worsening of symptoms. DISCHARGE TIME: Was 30 minutes. Dictated by SAILAJA Olmstead for Tung Anguiano MD cc: MD Reema Cotton CRNP MTDMeghana
--- NOTE | 2017-06-19 08:20 | Carotid Study ---
DATE: 06/17/2017 PROCEDURE: Bilateral duplex and color flow imaging of the carotid arteries performed using the [employer] Vivid E9 ultrasound system with a 9L-D transducer. REFERRING PHYSICIAN: Tung Anguiano MD. INTERPRETING PHYSICIAN: Kiana Lizama MD. TECH: Lise Whyte Blayne. INDICATIONS: CVA/stroke, ICD-10 163.50. OBSERVED DATA RIGHT LEFT Brachial Blood Pressure Carotid Pulse Bruits: Carotid/Sub DIAGRAM OF ULTRASOUND IMAGING R L RIGHT INT EXT INT EXT LEFT Ollie (cm/s) Ollie (cm/s) Subclavian 80/12 Subclavian 117/4 CCA Proximal 47/7 CCA Proximal 58/8 CCA Distal 44/10 CCA Distal 49/19 Bulb 38/8 Bulb 35/15 ICA Proximal 70/12 ICA Proximal 159/51 ICA Mid 44/18 ICA Mid 105/28 ICA Distal 27/6 ICA Distal 111/37 ECA 28/8 ECA 143/16 Vertebral 22/8 Vertebral 76/36 ICA/CCA Ratio 1.49 ICA/CCA Ratio 2.74 % Stenosis 0-39 % Stenosis 40-59 PHYSICIAN INTERPRETATION: This is a limited study secondary to the patient's morbid obesity. There is some tortuosity involving the left internal carotid artery. There appears to be mild to moderate atherosclerotic disease involving both carotid systems without evidence of a hemodynamically significant lesion in either carotid system. cc: MD Lucero Menon MD
[2017-06-19] MEDS ORDERED: FOLIC ACID PO SCH (09:00)
== END 2017-06-18 15:11 ==
LOC: ED 21:44 → 4N 06-14 01:41 → SUATTDRO 06-14 01:41
PROVIDERS: ATTEND Internal Medicine